=== PATIENT | male | born 1935 | race Caucasian/White ===

== ENCOUNTER → 2019-07-12 11:01 | Outpatient (BNVA) | payer MEDICARE, OTHER, SELFPAY | PROVIDERS: Family Provider Internal Medicine; PCP Internal Medicine; Referring Provider Internal Medicine; Visit Provider Internal Medicine Rheumatology | DX: M05.9 Rheumatoid arthritis with rheumatoid factor, unspecified (principal); Z79.899 Other long term (current) drug therapy | CPT/HCPCS: 36415; 80076; 82306; 82565; 85025; 85651; 86140; 99214 ==

== ENCOUNTER → 2019-07-12 12:02 | Outpatient (BNVA) | payer MEDICARE, OTHER, SELFPAY | PROVIDERS: Family Provider Internal Medicine; PCP Internal Medicine; Referring Provider Internal Medicine; Visit Provider Internal Medicine Rheumatology | DX: M05.9 Rheumatoid arthritis with rheumatoid factor, unspecified (principal); Z79.899 Other long term (current) drug therapy | CPT/HCPCS: 85025 ==

== ENCOUNTER → 2019-07-20 11:31 | Outpatient (BNVA) | payer MEDICARE, OTHER, SELFPAY | PROVIDERS: Family Provider Internal Medicine; PCP Internal Medicine; Visit Provider Internal Medicine Rheumatology | DX: M05.741 Rheumatoid arthritis with rheumatoid factor of right hand without organ or systems involvement (principal); M05.742 Rheumatoid arthritis with rheumatoid factor of left hand without organ or systems involvement; Z79.899 Other long term (current) drug therapy | CPT/HCPCS: 36415; 82306; 85025 ==

== ENCOUNTER → 2019-07-20 11:36 | Outpatient (BNVA) | payer MEDICARE, OTHER, SELFPAY | PROVIDERS: Family Provider Internal Medicine; PCP Internal Medicine | DX: Z79.899 Other long term (current) drug therapy (principal); M05.741 Rheumatoid arthritis with rheumatoid factor of right hand without organ or systems involvement; M05.742 Rheumatoid arthritis with rheumatoid factor of left hand without organ or systems involvement | CPT/HCPCS: 85025 ==

== ENCOUNTER → 2019-08-08 09:42 | Outpatient (BNVA) | payer MEDICARE, OTHER, SELFPAY | PROVIDERS: Family Provider Internal Medicine; PCP Internal Medicine; Visit Provider Internal Medicine Rheumatology | DX: D72.819 Decreased white blood cell count, unspecified (principal); Z79.899 Other long term (current) drug therapy; M05.9 Rheumatoid arthritis with rheumatoid factor, unspecified | CPT/HCPCS: 85025 ==

== ENCOUNTER → 2019-11-08 08:53 | Outpatient (BNVA) | payer MEDICARE, OTHER, SELFPAY | PROVIDERS: Family Provider Internal Medicine; PCP Internal Medicine; Visit Provider Internal Medicine Rheumatology | DX: Z79.899 Other long term (current) drug therapy (principal) | CPT/HCPCS: 80076; 82565; 85025; 85651; 86140 ==

== ENCOUNTER → 2020-01-05 09:55 | Outpatient (BNVA) | payer MEDICARE, OTHER, SELFPAY | PROVIDERS: Family Provider Internal Medicine; PCP Internal Medicine; Visit Provider Internal Medicine Rheumatology | DX: M05.9 Rheumatoid arthritis with rheumatoid factor, unspecified (principal); M81.0 Age-related osteoporosis without current pathological fracture; Z71.89 Other specified counseling; Z79.899 Other long term (current) drug therapy | CPT/HCPCS: 99214 ==

== ENCOUNTER → 2020-04-19 08:48 | Outpatient (BNVA) | payer MEDICARE, OTHER, SELFPAY | PROVIDERS: Family Provider Internal Medicine; PCP Internal Medicine; Visit Provider Internal Medicine Rheumatology | DX: M05.9 Rheumatoid arthritis with rheumatoid factor, unspecified (principal); M19.90 Unspecified osteoarthritis, unspecified site; Z79.899 Other long term (current) drug therapy | CPT/HCPCS: 80076; 82565; 85025; 85651; 86140 ==

== ENCOUNTER → 2020-04-23 11:40 | Outpatient (BNVA) | payer MEDICARE, OTHER, SELFPAY | PROVIDERS: Family Provider Internal Medicine; PCP Internal Medicine; Visit Provider Internal Medicine Rheumatology | DX: M05.9 Rheumatoid arthritis with rheumatoid factor, unspecified (principal); Z79.899 Other long term (current) drug therapy; D72.819 Decreased white blood cell count, unspecified; C44.309 Unspecified malignant neoplasm of skin of other parts of face; Z79.52 Long term (current) use of systemic steroids | CPT/HCPCS: 99214 ==

== ENCOUNTER → 2020-10-05 10:13 | Outpatient (BNVA) | payer MEDICARE, OTHER, SELFPAY | PROVIDERS: Family Provider Internal Medicine; PCP Internal Medicine; Visit Provider Internal Medicine Rheumatology | DX: Z79.899 Other long term (current) drug therapy (principal); M05.9 Rheumatoid arthritis with rheumatoid factor, unspecified | CPT/HCPCS: 36415; 80076; 82565; 85025; 86140 ==

== ENCOUNTER → 2020-10-17 09:45 | Outpatient (BNVA) | payer MEDICARE, OTHER, SELFPAY | PROVIDERS: Family Provider Internal Medicine; PCP Internal Medicine; Visit Provider Internal Medicine Rheumatology | DX: M05.9 Rheumatoid arthritis with rheumatoid factor, unspecified (principal); Z79.899 Other long term (current) drug therapy; D72.819 Decreased white blood cell count, unspecified; R60.0 Localized edema; Z85.828 Personal history of other malignant neoplasm of skin; Z87.891 Personal history of nicotine dependence | CPT/HCPCS: 99214 ==

== ENCOUNTER 2020-12-12 10:13 | Outpatient (CLI) | payer MEDICARE, OTHER, SELFPAY ==
--- NOTE | 2020-12-12 10:21 | USCV_ITS ---
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
--- NOTE | 2020-12-12 10:21 | USCV_ITS ---
Lemuel Lowe Age: 85 Gender: M : 1935 Exam Date: 12/12/2020 11:08 Ordering Phys: Summer Ziegler MD Technologist: [place] [facility] [place]: HX CAD BP: 131 / 74 HR: 59 Rhythm: Sinus Technical Quality: Good MEASUREMENTS (Male / Female) Normal Values 2D ECHO LV Diastolic Diameter PLAX 4.6 cm 4.2 - 5.9 / 3.9 - 5.3 cm LV Systolic Diameter PLAX 3.4 cm IVS Diastolic Thickness 1.2 cm 0.6 - 1.0 / 0.6 - 0.9 cm IVS Systolic Thickness 1.7 cm LVPW Diastolic Thickness 1.1 cm 0.6 - 1.0 / 0.6 - 0.9 cm LVPW Systolic Thickness 1.6 cm LVOT Diameter 2.1 cm LV Ejection Fraction 2D Teich 53.0 % LV Ejection Fraction MOD 2C 66.5 % LV Ejection Fraction 2C AL 66.1 % LA Diameter 3.8 cm LA Width 4.0 cm LA Height 5.3 cm RA Width 3.9 cm RA Height 4.7 cm DOPPLER AV Peak Velocity 117.0 cm/s LVOT Peak Velocity 104.0 cm/s AV Area Cont Eq vti 2.5 cm squared AV Area Cont Eq pk 3.0 cm squared MV Area PHT 4.9 cm squared Mitral E to A Ratio 1.0 MV E' Velocity 57.0 cm/s Mitral E to MV E' Ratio 6.9 Mitral E to LV E' Lateral Ratio 5.7 Mitral E to LV E' Septal Ratio 8.7 TR Peak Velocity 229.3 cm/s TR Peak Gradient 21.0 mmHg TV Peak E Velocity 88.0 cm/s Right Atrial Pressure 3.0 mmHg Pulmonary Artery Systolic Pressu 24.0 mmHg FINDINGS Left Ventricle Normal left ventricular size, systolic function and mildly increased wall thickness, with no regional wall motion abnormalities. Left ventricular ejection fraction is estimated at 65 %. Normal diastolic function. Right Ventricle Normal right ventricular size and systolic function. Right ventricular systolic pressure 34 mmHg. Right Atrium Normal right atrial size. Left Atrium Upper normal left atrial size. Mitral Valve Structurally normal mitral valve. No mitral valve stenosis. Mild to moderate mitral valve regurgitation. Aortic Valve Aortic valve not well visualized. Probably mildly thickened trileaflet aortic valve. No aortic valve stenosis. No aortic valve regurgitation. Tricuspid Valve Structurally normal tricuspid valve. Mild tricuspid valve regurgitation. Pulmonic Valve Pulmonic valve not well visualized. Mild to moderate pulmonary valve regurgitation. Pericardium No pericardial effusion. Aorta Normal size aortic root and proximal ascending aorta. CONCLUSIONS 1. Normal left ventricular size, systolic function and mildly increased wall thickness, with no regional wall motion abnormalities. Left ventricular ejection fraction is estimated at 65 %. Normal diastolic function. 2. Normal right ventricular size and systolic function. 3. Mild to moderate mitral valve regurgitation. 4. Mild to moderate pulmonary valve regurgitation. 5. Pulmonary artery pressure estimated at 34 mmHg. 6. No significant change when compared to old study dated 09/01/2018. Shea Carolina MD (Electronically Signed) Final Date: 14 December 2020 14:41 S
== END 2020-12-12 10:14 | disposition home or self-care (01) ==
LOC: RAD 10:16
PROVIDERS: PCP Internal Medicine; Visit Provider Internal Medicine
DX: M79.661 Pain in right lower leg (principal); M79.662 Pain in left lower leg; R60.9 Edema, unspecified; I34.0 Nonrheumatic mitral (valve) insufficiency
CPT/HCPCS: 93306; 93922

== ENCOUNTER → 2021-02-20 12:39 | Outpatient (BNVA) | payer MEDICARE, OTHER, SELFPAY | PROVIDERS: PCP Internal Medicine; Visit Provider Internal Medicine Rheumatology | DX: M05.9 Rheumatoid arthritis with rheumatoid factor, unspecified (principal); M19.90 Unspecified osteoarthritis, unspecified site; Z79.899 Other long term (current) drug therapy | CPT/HCPCS: 80076; 82565; 85025; 86140 ==

== ENCOUNTER → 2021-09-10 09:35 | Outpatient (BNVA) | payer MEDICARE, OTHER, SELFPAY | PROVIDERS: PCP Internal Medicine; Visit Provider Internal Medicine Rheumatology | DX: M05.9 Rheumatoid arthritis with rheumatoid factor, unspecified (principal); Z79.899 Other long term (current) drug therapy; D72.819 Decreased white blood cell count, unspecified; R60.0 Localized edema; R26.89 Other abnormalities of gait and mobility; Z85.828 Personal history of other malignant neoplasm of skin; Z71.89 Other specified counseling | CPT/HCPCS: 80076; 82565; 85025; 86140; 99214 ==

== ENCOUNTER 2022-01-06 13:54 | Oncology outpatient (recurring) (ONCR) | payer MEDICARE, OTHER, SELFPAY ==
[2022-01-06 17:00] LABS: Reticulocyte % 1.6 % (0.5-2.0)
[2022-01-06 17:01] LABS: Basophils % 0.7 %; Eosinophils # 0.1 10^3/uL (0.0-0.8); Hematocrit 41.1 % (42.0-52.0); Hemoglobin 13.5 g/dL (11.7-16.6); Lymphocytes # 0.9 10^3/uL (0.8-4.8); Lymphocytes % 29.5 %; Mean Corpuscular HGB Conc 32.8 g/dL (30.0-36.0); Mean Corpuscular Hemoglobin 30.8 pg (28.0-34.0); Mean Corpuscular Volume 93.8 fl (80-94); Mean Platelet Volume 10.2 fL (7.4-10.4); Monocytes # 0.4 10^3/uL (0.2-0.9); Monocytes % 13.4 %; Neutrophils # 1.62 10^3/uL (1.8-7.7); Neutrophils % 54.4 %; Nucleated Red Blood Cells % 0 %; Platelet Count 147 10^3/cmm (130-400); Red Blood Count 4.38 10^6/uL (4.1-5.3); Red Cell Distribution Width 13.5 % (12.1-15.1)
[2022-01-06 17:06] LABS: LAB Peripheral Smear Sent for Review
[2022-01-06 17:09] LABS: Erythrocyte Sedimentation Rate < 1 mm/hr (0-10)
[2022-01-06 17:42] LABS: Alanine Aminotransferase 13 U/L (0-41); Albumin Level 4.6 g/dL (3.5-5.2); Alkaline Phosphatase 72 IU/L (40-130); Anion Gap 11.9 (5-19); Aspartate Amino Transferase 23 U/L (0-40); Blood Urea Nitrogen 10 mg/dL (8-23); Carbon Dioxide 30 mmol/L (22-29); Chloride 104 mmol/L (98-107); Globulin 2.1 g/dL (1.3-4.6); Glucose 96 mg/dL (65-115); Lactate Dehydrogenase 250 U/L (135-225); Osmolality Calculated 293 mOsm/kg (285-295); Potassium 3.9 mmol/L (3.5-5.1); Sodium 142 mmol/L (136-145); Total Bilirubin 0.6 mg/dL (0.15-1.2); Total Protein 6.7 g/dL (6.6-8.7)
[2022-01-06 17:55] LABS: Vitamin B12 559 pg/mL (232-1245)
== END 2022-01-06 23:59 | disposition home or self-care (01) ==
PROVIDERS: PCP Internal Medicine; Visit Provider Internal Medicine Medical Oncology
DX: D61.818 Other pancytopenia (principal); D72.819 Decreased white blood cell count, unspecified; K13.70 Unspecified lesions of oral mucosa
CPT/HCPCS: 36415; 80053; 82607; 82746; 83615; 85025; 85045; 85651; 86140; 99204

== ENCOUNTER → 2022-03-10 10:18 | Outpatient (BNVA) | payer MEDICARE, OTHER, SELFPAY | PROVIDERS: PCP Internal Medicine; Visit Provider Internal Medicine Rheumatology | DX: M05.9 Rheumatoid arthritis with rheumatoid factor, unspecified (principal); Z71.89 Other specified counseling; Z79.899 Other long term (current) drug therapy; R26.89 Other abnormalities of gait and mobility; Z85.828 Personal history of other malignant neoplasm of skin; R60.0 Localized edema | CPT/HCPCS: 99214 ==

== ENCOUNTER → 2022-06-04 11:07 | Outpatient (BNVA) | payer MEDICARE, OTHER, SELFPAY | PROVIDERS: PCP Internal Medicine; Visit Provider Internal Medicine Rheumatology | DX: M05.9 Rheumatoid arthritis with rheumatoid factor, unspecified (principal); Z79.899 Other long term (current) drug therapy; Z71.89 Other specified counseling; K08.9 Disorder of teeth and supporting structures, unspecified; K13.70 Unspecified lesions of oral mucosa; D72.819 Decreased white blood cell count, unspecified; M21.379 Foot drop, unspecified foot; Z85.828 Personal history of other malignant neoplasm of skin; R60.0 Localized edema | CPT/HCPCS: 99214 ==

== ENCOUNTER → 2022-09-16 10:45 | Outpatient (BNVA) | payer MEDICARE, OTHER, SELFPAY | PROVIDERS: PCP Internal Medicine; Visit Provider Internal Medicine Rheumatology | DX: M05.9 Rheumatoid arthritis with rheumatoid factor, unspecified (principal); Z71.89 Other specified counseling; Z79.899 Other long term (current) drug therapy; K14.0 Glossitis; K08.9 Disorder of teeth and supporting structures, unspecified | CPT/HCPCS: 99214 ==

== ENCOUNTER → 2022-12-24 11:41 | Outpatient (BNVA) | payer MEDICARE, OTHER, SELFPAY | PROVIDERS: PCP Internal Medicine; Visit Provider Internal Medicine Rheumatology | DX: M05.9 Rheumatoid arthritis with rheumatoid factor, unspecified (principal); Z71.89 Other specified counseling; K14.0 Glossitis; K08.9 Disorder of teeth and supporting structures, unspecified; Z79.899 Other long term (current) drug therapy | CPT/HCPCS: 80076; 82565; 85025; 86140; 99214 ==

== ENCOUNTER 2023-03-02 06:00 | Outpatient (RCR) | payer MEDICARE, OTHER, SELFPAY | END 2023-03-21 23:59 | disposition home or self-care (01) | LOC: APT 06:00 | PROVIDERS: PCP Internal Medicine; Visit Provider Nurse Practitioner Family | DX: R29.6 Repeated falls (principal) | CPT/HCPCS: 97110; 97112; 97162; 97530 ==

== ENCOUNTER 2023-03-22 06:00 | Outpatient (RCR) | payer MEDICARE, OTHER, SELFPAY | END 2023-04-21 23:59 | disposition home or self-care (01) | LOC: APT 06:00 | PROVIDERS: PCP Internal Medicine; Visit Provider Nurse Practitioner Family | DX: R29.6 Repeated falls (principal) | CPT/HCPCS: 97110; 97112; 97116; 97530 ==

== ENCOUNTER 2023-04-22 06:00 | Outpatient (RCR) | payer MEDICARE, OTHER, SELFPAY | END 2023-05-21 23:59 | disposition home or self-care (01) | LOC: APT 06:00 | PROVIDERS: PCP Internal Medicine; Visit Provider Nurse Practitioner Family | DX: R29.6 Repeated falls (principal) | CPT/HCPCS: 97110; 97112; 97530 ==

== ENCOUNTER → 2023-04-29 11:00 | Outpatient (BNVA) | payer MEDICARE, OTHER, SELFPAY | PROVIDERS: PCP Internal Medicine; Visit Provider Internal Medicine Rheumatology | DX: M05.9 Rheumatoid arthritis with rheumatoid factor, unspecified (principal); Z71.89 Other specified counseling; Z79.899 Other long term (current) drug therapy; K14.0 Glossitis; K08.9 Disorder of teeth and supporting structures, unspecified | CPT/HCPCS: 99214 ==

== ENCOUNTER → 2023-12-01 11:40 | Outpatient (BNVA) | payer MEDICARE, OTHER, SELFPAY | PROVIDERS: PCP Nurse Practitioner; Visit Provider Internal Medicine Rheumatology | DX: M05.9 Rheumatoid arthritis with rheumatoid factor, unspecified (principal); K14.0 Glossitis; K08.9 Disorder of teeth and supporting structures, unspecified; Z79.899 Other long term (current) drug therapy; R29.898 Other symptoms and signs involving the musculoskeletal system; Z71.89 Other specified counseling; D72.818 Other decreased white blood cell count | CPT/HCPCS: 99214 ==

== ENCOUNTER → 2024-09-22 11:04 | Outpatient (BNVA) | payer MEDICARE, OTHER, SELFPAY | PROVIDERS: PCP Nurse Practitioner; Visit Provider Internal Medicine Rheumatology | DX: M05.9 Rheumatoid arthritis with rheumatoid factor, unspecified (principal); Z79.899 Other long term (current) drug therapy; Z71.89 Other specified counseling; K14.0 Glossitis; K08.9 Disorder of teeth and supporting structures, unspecified | CPT/HCPCS: 99214 ==

== ENCOUNTER 2024-12-09 10:39 | Outpatient (CLI) | payer MEDICARE, OTHER, SELFPAY ==
--- NOTE | 2024-12-09 10:45 | CT_ITS ---
WS: [id number] CT HEAD TECHNIQUE: Noncontrast CT of the head obtained from the skullbase to the vertex. CLINICAL INFORMATION: S09.90XA - Unspecified injury of head, initial encounter COMPARISON: MRI 2019 DLP: 874.[address] scans at [facility] use at least one of these dose optimization techniques: automated exposure control; mA and/or kV adjustment per patient size (includes targeted exams where dose is matched to clinical indication); or iterative reconstruction. FINDINGS: No evidence of intracranial hemorrhage or mass effect. Ventricular system and basal cisterns are patent. Moderate small vessel changes with moderate parenchymal volume loss. 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 No extra-axi al fluid collections. No evidence of mass or mass effect. Vascular calcification Paranasal sinuses and mastoid air cells are well aerated. Mild mucosal thickening LEFT mastoid tip.mild soft tissue edema overlying the LEFT parietal vertex. CT/CT head wo con* [id number] IMPRESSION: 1. No evidence of intracranial hemorrhage or mass effect. 2. No acute intracranial findings.
== END 2024-12-09 10:40 | disposition home or self-care (01) ==
LOC: RAD 10:42
PROVIDERS: PCP Nurse Practitioner; Visit Provider Nurse Practitioner
DX: S09.90XA Unspecified injury of head, initial encounter (principal); X58.XXXA Exposure to other specified factors, initial encounter
CPT/HCPCS: 70450

== ENCOUNTER → 2025-03-14 13:59 | Outpatient (BNVA) | payer MEDICARE, OTHER, SELFPAY | PROVIDERS: PCP Nurse Practitioner; Visit Provider Internal Medicine Rheumatology | DX: M05.9 Rheumatoid arthritis with rheumatoid factor, unspecified (principal); Z79.899 Other long term (current) drug therapy; Z71.85 Encounter for immunization safety counseling; K14.0 Glossitis; K08.9 Disorder of teeth and supporting structures, unspecified; R23.8 Other skin changes; R60.0 Localized edema | CPT/HCPCS: 99214 ==